=== PATIENT | male | born 1965 | race Caucasian/White ===

== ENCOUNTER → 2016-08-22 | Outpatient (CLI) | payer OTHER ==
[~2016-08-22] MED LIST: SULF1TAB38 PO
--- NOTE | 2016-08-22 10:20 | Diagnostic Imaging Report ---
Two views of the lumbar spine. INDICATION: Back pain. FINDINGS: The vertebral body heights are preserved. Disc heights are also preserved. The alignment is satisfactory. No significant osteophyte formation is seen posteriorly. Minimal anterior osteophytes at the L3/L4 level is noted. There is unremarkable appearance of the SI joints. IMPRESSION: No significant abnormality. Dictated by: Dictated on workstation # [id number]
--- NOTE | 2016-08-22 10:27 | Diagnostic Imaging Report ---
EXAMINATION: Two views of the left knee. INDICATION: Left knee pain. FINDINGS: No acute fracture, dislocation, or radiopaque foreign body is seen. No suprapatellar effusion is noted. Minimal marginal osteophytes in the patellofemoral compartment are seen. No significant joint space narrowing is noted. IMPRESSION: Minimal degenerative changes. Dictated by: Dictated on workstation # [id number]
== END ==
LOC: RAD 09:09
PROVIDERS: ATTEND Surgery
DX: Z02.71 Encounter for disability determination (principal)
CPT/HCPCS: 72100; 73560

== ENCOUNTER 2017-02-03 11:45 | Emergency (ER) | payer SELFPAY ==
[~2017-02-03] VITALS: Ht 165.1 cm; Wt 58.5 kg
[2017-02-03] MEDS ORDERED: ONDANSETRON 4 MG/2 ML (SDV) Z0FRAN IVP ONE (12:00)
[2017-02-03] MEDS ORDERED: KETOROLAC 30 MG/ML VIAL IVP ONE (12:00)
--- NOTE | 2017-02-03 12:01 | ED General ---
General Chief Complaint: General Problems/Pain Stated Complaint: WEAKNESS, SIDE PAIN, MIGRANE, [place] Source of Information: Patient Exam Limitations: No Limitations History of Present Illness Time Seen by Provider: 11:59 Initial Comments To ER with generalized weakness, headache, nausea. The symptoms have been ongoing for about a week. Initially began with a sore throat and since then he has developed nasal congestion and purulent nasal discharge both sides. Also has a frontal headache. He states the warm showers help to decongest him. Has a slight infrequent nonproductive cough. No fevers. He did have a few episodes of diarrhea. Nausea without vomiting has also been present. He states that he has trouble swallowing foods and in order to get the food to go down his esophagus he has to press on the left lower part of his abdomen. He denies any pain to this area but states that pressing in this location seems to make the food flow more smoothly down his esophagus. He has no trouble swallowing liquids Timing/Duration: 1 Week Severity: Moderate Allergies and Home Medications Allergies Coded Allergies: No Known Drug Allergies (Unverified , 11/16/11) Home Medications No Active Prescriptions or Reported Meds Constitutional: see HPI, chills EENTM: see HPI, nose congestion, throat pain Respiratory: no symptoms reported Cardiovascular: no symptoms reported Gastrointestinal: No abdominal pain, diarrhea, nausea, No vomiting Genitourinary: no symptoms reported Musculoskeletal: see HPI Skin: no symptoms reported Psychiatric/Neurological: No Symptoms Reported Hematologic/Lymphatic: No Symptoms Reported Immunological/Allergic: no symptoms reported Past Eyhfplo-Nmsyty-Wewxze Hx Patient Social History Recent Foreign Travel: No Contact w/Someone Who Travel: No Physical Exam Vital Signs Vital Sign - Last 12Hours 02/03/17 11:50 Temp 97.9 Pulse 77 Resp 18 B/P (MAP) 115/84 Pulse Ox 94 Capillary Refill : General Appearance: No Apparent Distress, WD/WN, Other (healthy and well- appearing) Eyes: Bilateral Eye Normal Inspection, Bilateral Eye PERRL, Bilateral Eye EOMI HEENT: PERRL/EOMI, TMs Normal Neck: Full Range of Motion, Normal Inspection, Non Tender Respiratory: Lungs Clear, Normal Breath Sounds, No Accessory Muscle Use, No Respiratory Distress Cardiovascular: Regular Rate, Rhythm, Normal Peripheral Pulses Gastrointestinal: No Pulsatile Mass, Non Tender, Soft Extremity: Normal Capillary Refill Neurologic/Psychiatric: Alert, Oriented x3, No Motor/Sensory Deficits Skin: Normal Color, Warm/Dry Progress/Results/Core Measures Results/Orders Lab Results Laboratory Tests Test 02/03/17 11:55 02/03/17 12:32 Range/Units White Blood Count 5.4 4.3-11.0 10^3/uL Red Blood Count 4.79 4.35-5.85 10^6/uL Hemoglobin 14.7 13.3-17.7 G/DL Hematocrit 42 40-54 % Mean Corpuscular Volume 88 80-99 FL Mean Corpuscular Hemoglobin 31 25-34 PG Mean Corpuscular Hemoglobin Concent 35 32-36 G/DL Red Cell Distribution Width 12.4 10.0-14.5 % Platelet Count 166 130-400 10^3/uL Mean Platelet Volume 10.8 H 7.4-10.4 FL Neutrophils (%) (Auto) 66 42-75 % Lymphocytes (%) (Auto) 17 12-44 % Monocytes (%) (Auto) 16 H 0-12 % Eosinophils (%) (Auto) 0 0-10 % Basophils (%) (Auto) 0 0-10 % Neutrophils # (Auto) 3.6 1.8-7.8 X 10^3 Lymphocytes # (Auto) 0.9 L 1.0-4.0 X 10^3 Monocytes # (Auto) 0.9 0.0-1.0 X 10^3 Eosinophils # (Auto) 0.0 0.0-0.3 10^3/uL Basophils # (Auto) 0.0 0.0-0.1 10^3/uL Sodium Level 136 135-145 MMOL/L Potassium Level 4.0 3.6-5.0 MMOL/L Chloride Level 100 98-107 MMOL/L Carbon Dioxide Level 26 21-32 MMOL/L Anion Gap 10 5-14 MMOL/L Blood Urea Nitrogen 18 7-18 MG/DL Creatinine 0.90 0.60-1.30 MG/DL Estimat Glomerular Filtration Rate > 60 BUN/Creatinine Ratio 20 Glucose Level 107 H 70-105 MG/DL Calcium Level 9.5 8.5-10.1 MG/DL Total Bilirubin 1.4 H 0.1-1.0 MG/DL Aspartate Amino Transf (AST/SGOT) 14 5-34 U/L Alanine Aminotransferase (ALT/SGPT) 17 0-55 U/L Alkaline Phosphatase 74 40-136 U/L Total Protein 7.7 6.4-8.2 GM/DL Albumin 4.3 3.2-4.5 GM/DL Lipase 13 8-78 U/L My Orders Orders - FLYNN MICHAELS APRN Cbc With Automated Diff (02/03/17 11:57) Lipase (02/03/17 11:57) Saline Lock/Iv-Start (02/03/17 11:57) Ua Culture If Indicated (02/03/17 11:57) Comprehensive Metabolic Panel (02/03/17 11:57) Ketorolac Injection (Toradol Injection) (02/03/17 12:00) Ondansetron Injection (Zofran Injectio (02/03/17 12:00) Medications Given in ED Current Medications Medications Dose Ordered Sig/Janae Route Start Time Stop Time Status Last Admin Dose Admin Ketorolac Tromethamine 30 mg ONCE ONCE IVP 02/03/17 12:00 02/03/17 12:01 DC 02/03/17 12:13 30 MG Ondansetron HCl 4 mg ONCE ONCE IVP 02/03/17 12:00 02/03/17 12:01 DC 02/03/17 12:13 4 MG Vital Signs/I&O Vital Sign - Last 12Hours 02/03/17 11:50 Temp 97.9 Pulse 77 Resp 18 B/P (MAP) 115/84 Pulse Ox 94 Departure Communication (Admissions) Progress Notes 1241-headache is still present but it is better. He currently rates it a 5 out of 10. I will give a Fioricet here. He also reports some cracking in his ears and popping sensations so will do a dose of Decadron. This is only been present for less than one week or one week maximum. He does not want antibiotics unless he absolutely needs them. I will prescribe antibiotics for him to use if he fails to improve with more conservative treatment plan Impression Impression: Primary Impression: Viral syndrome Disposition: HOME, SELF-CARE Condition: Stable Departure-Patient Inst. Decision time for Depature: 12:42 Referrals: NO,LOCAL PHYSICIAN (PCP/Family) Primary Care Physician Patient Instructions: VIRAL SYNDROME Add. Discharge Instructions: 1. Continue to use Tylenol and Motrin for headaches and pains 2. Return to ER for any concerns 3. Fill the antibiotics if you worsen All discharge instructions reviewed with patient and/or family. Voiced understanding. Scripts Amoxicillin (Amoxicillin) 400 Mg/5 Ml Susp.recon 6 MG PO TID for 7 Days, ML Prov: FLYNN MICHAELS APRN 02/03/17 FLYNN MICHAELS APRN Feb 03, 2017 12:01
[2017-02-03 12:13] LABS: BASOPHILS % (AUTO) 0 % (0-10); EOSINOPHILS % (AUTO) 0 % (0-10); LYMPHOCYTES # (AUTO) 0.9 X 10^3 (1.0-4.0); LYMPHOCYTES % (AUTO) 17 % (12-44); MEAN CORPUSCULAR HEMOGLOBIN 31 PG (25-34); MEAN CORPUSCULAR HGB CONC 35 G/DL (32-36); MEAN CORPUSCULAR VOLUME 88 FL (80-99); MEAN PLATELET VOLUME 10.8 FL (7.4-10.4); MONOCYTES # (AUTO) 0.9 X 10^3 (0.0-1.0); MONOCYTES % (AUTO) 16 % (0-12); NEUTROPHILS # (AUTO) 3.6 X 10^3 (1.8-7.8); NEUTROPHILS % (AUTO) 66 % (42-75); PLATELET COUNT 166 10^3/uL (130-400); RED BLOOD COUNT 4.79 10^6/uL (4.35-5.85); RED CELL DISTRIBUTION WIDTH 12.4 % (10.0-14.5); WHITE BLOOD COUNT 5.4 10^3/uL (4.3-11.0)
[2017-02-03 12:27] LABS: ALANINE AMINOTRANSFERASE 17 U/L (0-55); ALBUMIN 4.3 GM/DL (3.2-4.5); ANION GAP 10 MMOL/L (5-14); ASPARTATE AMINO TRANSFERASE 14 U/L (5-34); BILIRUBIN,TOTAL 1.4 MG/DL (0.1-1.0); BLOOD UREA NITROGEN 18 MG/DL (7-18); BUN/CREATININE RATIO 20; CALCIUM 9.5 MG/DL (8.5-10.1); CARBON DIOXIDE 26 MMOL/L (21-32); CHLORIDE 100 MMOL/L (98-107); GFR ESTIMATED > 60; GLUCOSE 107 MG/DL (70-105); LIPASE 13 U/L (8-78); SODIUM 136 MMOL/L (135-145); TOTAL PROTEIN 7.7 GM/DL (6.4-8.2)
[2017-02-03 12:41] LABS: KETONES,URINE 3+ (NEGATIVE); LEUKOCYTE ESTERASE ,URINE 1+ (NEGATIVE); NITRITE,URINE NEGATIVE (NEGATIVE); PH,URINE 5 (5-9); PROTEIN,URINE 2+ (NEGATIVE); UROBILINOGEN,URINE 4 MG/DL (NORMAL)
[2017-02-03] MEDS ORDERED: AMOX400S9 PO (12:44)
[2017-02-03] MEDS ORDERED: DEXAMETHASONE 10 MG/ML (DECADRON) 1 ML VIAL ONE (12:44)
[2017-02-03] MEDS ORDERED: ACET/BUTAL/CAFF (FIORICET) TAB PO PRN (12:45)
[2017-02-03] MEDS ORDERED: DEXAMETHASONE PF 10 MG/ML (DECADRON) VIAL IV SCH (12:45)
[2017-02-03 12:49] LABS: BILIRUBIN,URINE 1+ (NEGATIVE); WBC,URINE RARE /HPF
[2017-02-03 13:02] VITALS: BP 115/84
== END 2017-02-03 13:02 | disposition home or self-care (01) ==
LOC: EDUNIT# 11:45 → ER 11:48
DX: B34.9 Viral infection, unspecified (principal)
CPT/HCPCS: 36415; 80053; 81000; 83690; 85025; 96374; 96375

== ENCOUNTER → 2017-07-05 | Outpatient (CLI) | payer SELFPAY ==
[~2017-07-05] MED LIST changes: +AMOX400S9 PO; +BARIUM SUSPENSION 105% (LIQUID POLIBAR PLUS) 240 ML/DOSE PO ONE; +BARIUM SUSPENSION 60% (LIQUID EZ PAQUE) 240 ML DOSE PO ONE
--- NOTE | 2017-07-05 13:08 | Diagnostic Imaging Report ---
INDICATION: Food gets stuck in the throat as well as abdominal pain. TECHNIQUE: The patient ingested effervescent crystals as well as thin and thick barium and imaging of the esophagus was performed. 1 minute and 52 seconds of fluoroscopy time was utilized. FINDINGS: The preliminary chest radiograph is unremarkable. The esophagus demonstrates a smooth contour. No mass or stricture is identified. Very mild gastroesophageal reflux was demonstrated. No hiatal hernia is detected. There is free flow of contrast into the stomach. IMPRESSION: Mild gastroesophageal reflux. The study is otherwise unremarkable. Dictated by: Dictated on workstation # [id number]
== END ==
LOC: RAD 11:39
PROVIDERS: ATTEND Nurse Practitioner Community Health
DX: K21.0 Gastro-esophageal reflux disease with esophagitis (principal); T18.128A Food in esophagus causing other injury, initial encounter
CPT/HCPCS: 74220